=== PATIENT | male | born 1975 | race Caucasian/White ===

== ENCOUNTER → 2020-02-02 08:00 | Outpatient (BNVA) | payer BC, SELFPAY | PROVIDERS: Visit Provider Anesthesiology | DX: G89.29 Other chronic pain (principal); M54.41 Lumbago with sciatica, right side; M54.42 Lumbago with sciatica, left side; M79.651 Pain in right thigh; M79.652 Pain in left thigh; M79.605 Pain in left leg; M54.2 Cervicalgia; R51 Headache; F17.210 Nicotine dependence, cigarettes, uncomplicated; Z71.6 Tobacco abuse counseling | CPT/HCPCS: 99214 ==

== ENCOUNTER → 2020-05-03 08:46 | Outpatient (BNVA) | payer MEDICAID, SELFPAY | PROVIDERS: PCP Registered Nurse; Visit Provider Anesthesiology | DX: G89.29 Other chronic pain (principal); M54.41 Lumbago with sciatica, right side; M54.42 Lumbago with sciatica, left side; M54.6 Pain in thoracic spine; M54.2 Cervicalgia; F17.210 Nicotine dependence, cigarettes, uncomplicated; Z79.891 Long term (current) use of opiate analgesic; Z71.6 Tobacco abuse counseling | CPT/HCPCS: 99214 ==

== ENCOUNTER → 2020-07-06 07:58 | Outpatient (BNVA) | payer OTHER, SELFPAY | PROVIDERS: PCP Registered Nurse; Visit Provider Anesthesiology | DX: G89.29 Other chronic pain (principal); M54.42 Lumbago with sciatica, left side; M54.41 Lumbago with sciatica, right side; M79.605 Pain in left leg; M54.2 Cervicalgia; M54.6 Pain in thoracic spine; F17.210 Nicotine dependence, cigarettes, uncomplicated; Z79.891 Long term (current) use of opiate analgesic; Z71.6 Tobacco abuse counseling | CPT/HCPCS: 99214 ==

== ENCOUNTER → 2020-08-31 08:04 | Outpatient (BNVA) | payer SELFPAY | PROVIDERS: PCP Registered Nurse; Visit Provider Anesthesiology | DX: G89.29 Other chronic pain (principal); M54.42 Lumbago with sciatica, left side; M54.41 Lumbago with sciatica, right side; M54.6 Pain in thoracic spine; M54.2 Cervicalgia; M79.605 Pain in left leg; F17.210 Nicotine dependence, cigarettes, uncomplicated; Z79.891 Long term (current) use of opiate analgesic | CPT/HCPCS: 99214 ==

== ENCOUNTER → 2020-11-01 07:53 | Outpatient (BNVA) | payer OTHER, SELFPAY | PROVIDERS: PCP Registered Nurse; Visit Provider Anesthesiology | DX: G89.29 Other chronic pain (principal); M54.42 Lumbago with sciatica, left side; M54.41 Lumbago with sciatica, right side; M79.605 Pain in left leg; M54.6 Pain in thoracic spine; M54.2 Cervicalgia; F17.210 Nicotine dependence, cigarettes, uncomplicated; Z79.1 Long term (current) use of non-steroidal anti-inflammatories (NSAID); Z79.891 Long term (current) use of opiate analgesic | CPT/HCPCS: 99214 ==

== ENCOUNTER → 2020-12-27 08:46 | Outpatient (BNVA) | payer OTHER, SELFPAY | PROVIDERS: PCP Registered Nurse; Visit Provider Anesthesiology | DX: G89.29 Other chronic pain (principal); M54.42 Lumbago with sciatica, left side; M54.41 Lumbago with sciatica, right side; M54.2 Cervicalgia; M79.605 Pain in left leg; F17.210 Nicotine dependence, cigarettes, uncomplicated; Z79.891 Long term (current) use of opiate analgesic | CPT/HCPCS: 99214 ==

== ENCOUNTER → 2021-02-24 08:19 | Outpatient (BNVA) | payer OTHER, SELFPAY | PROVIDERS: PCP Registered Nurse; Visit Provider Anesthesiology | DX: G89.29 Other chronic pain (principal); M54.42 Lumbago with sciatica, left side; M54.41 Lumbago with sciatica, right side; M54.6 Pain in thoracic spine; M54.2 Cervicalgia; M79.605 Pain in left leg; Z79.891 Long term (current) use of opiate analgesic | CPT/HCPCS: 99214 ==

== ENCOUNTER → 2021-04-20 08:14 | Outpatient (BNVA) | payer OTHER, SELFPAY | PROVIDERS: PCP Registered Nurse; Visit Provider Anesthesiology | DX: G89.29 Other chronic pain (principal); M54.42 Lumbago with sciatica, left side; M54.41 Lumbago with sciatica, right side; M54.2 Cervicalgia; M25.561 Pain in right knee; M79.605 Pain in left leg; F17.210 Nicotine dependence, cigarettes, uncomplicated; Z79.891 Long term (current) use of opiate analgesic | CPT/HCPCS: 99214 ==

== ENCOUNTER → 2021-06-29 09:02 | Outpatient (BNVA) | payer OTHER, SELFPAY | PROVIDERS: PCP Registered Nurse; Visit Provider Nurse Practitioner | DX: G89.29 Other chronic pain (principal); M54.42 Lumbago with sciatica, left side; M54.41 Lumbago with sciatica, right side; M54.2 Cervicalgia; M54.6 Pain in thoracic spine; M25.561 Pain in right knee; M79.605 Pain in left leg; F17.210 Nicotine dependence, cigarettes, uncomplicated; Z79.891 Long term (current) use of opiate analgesic | CPT/HCPCS: 99213 ==

== ENCOUNTER → 2021-08-24 07:51 | Outpatient (BNVA) | payer OTHER, SELFPAY | PROVIDERS: PCP Registered Nurse; Visit Provider Anesthesiology | DX: G89.29 Other chronic pain (principal); M54.2 Cervicalgia; M54.42 Lumbago with sciatica, left side; M54.41 Lumbago with sciatica, right side; M79.605 Pain in left leg; F17.210 Nicotine dependence, cigarettes, uncomplicated; Z79.891 Long term (current) use of opiate analgesic | CPT/HCPCS: 99213 ==

== ENCOUNTER → 2021-10-19 07:59 | Outpatient (BNVA) | payer OTHER, SELFPAY | PROVIDERS: PCP Registered Nurse; Visit Provider Anesthesiology | DX: G89.29 Other chronic pain (principal); M54.2 Cervicalgia; M54.42 Lumbago with sciatica, left side; M54.41 Lumbago with sciatica, right side; M79.605 Pain in left leg; M54.6 Pain in thoracic spine; M25.561 Pain in right knee; F17.200 Nicotine dependence, unspecified, uncomplicated; Z79.891 Long term (current) use of opiate analgesic; Z79.1 Long term (current) use of non-steroidal anti-inflammatories (NSAID) | CPT/HCPCS: 99214 ==

== ENCOUNTER → 2024-09-24 09:03 | Outpatient (BNVA) | payer MEDICAID, SELFPAY | PROVIDERS: PCP Registered Nurse; Referring Provider Nurse Practitioner Family; Visit Provider Surgery | DX: K92.2 Gastrointestinal hemorrhage, unspecified (principal); Z80.0 Family history of malignant neoplasm of digestive organs | CPT/HCPCS: 99204 ==

== ENCOUNTER → 2024-10-21 07:08 | Day surgery (SDC) | payer MEDICARE, MEDICAID, SELFPAY ==
[2024-10-21 07:29] VITALS: BP 160/125; PULSE 98; RESP 20; TEMP 36.2; O2SAT 95; BMI 42.7
--- NOTE | 2024-10-21 07:34 | ANES.PREANE2 ---
Pre-Anesthetic Assessment Height/Weight: Height 1.8 m Operation Date: 10/21/24 08:30 Proposed Procedures p EGD 81894, 53819, G0105, K92.2, Z80.0(Not Applicable) - Brenton Keller DO s Colonoscopy(Not Applicable) - Brenton Keller DO Familial anesthetic complications: NOne Was Beta Silvia taken within 24 hours: N/A Was Clonidine taken within 24 hours: N/A Last intake: > 8hrs Social Tobacco and No alcohol Exam alert, oriented x 3, clear to auscultation bilaterally and regular rate & rhythm Airway Mallampati: Class IV Dentition: false Comments: Comments: large tongue, aguirre neck Pulmonary Chronic Obstructive Pulmonary Disease and Sleep Apnea O2 at night Anesthetic Plan ASA status: 4 Anesthesia: MAC Risk of > 500 ml blood loss (7ml/kg in children): No Medications/Allergies Home Medications Medication Instructions Recorded Confirmed Last Taken Type ibuprofen 800 mg tablet 800 mg PO TID 30 days #90 tabs 12/21/21 10/21/24 Unknown Rx methocarbamol 500 mg tablet 500 mg PO QID 30 days #150 tabs 12/21/21 10/19/24 Unknown Rx oxycodone-acetaminophen 10 mg-325 1 tab PO .6 times a day PRN pain 12/21/21 10/19/24 Unknown Rx mg tablet (Percocet) 30 days #180 tabs oxycodone-acetaminophen 10 mg-325 1 tab PO .6 times a day PRN pain 12/21/21 10/21/24 10/20/24 Rx mg tablet (Percocet) 30 days #180 tabs tramadol 50 mg tablet 50 mg PO QID PRN pain 30 days #120 12/21/21 10/21/24 10/20/24 Rx tabs ondansetron 8 mg disintegrating 8 mg PO Q8H PRN nausea and 09/24/24 10/19/24 Unknown Rx tablet vomiting #7 tabs Allergies Allergy/AdvReac Type Severity Reaction Status Date / Time No Known Allergies Allergy Verified 09/24/24 09:29 [facility], [facility] Anesthesia Medical History (Updated 09/24/24 @ 09:57 by Brenton Keller DO) Family history of colon cancer Smoker unmotivated to quit Chronic pain of right knee Chronic neck pain Chronic bilateral low back pain with bilateral sciatica Acute neck pain Aching headache Back pain, thoracic Low back pain radiating to left leg Opioid contract exists Encounter for long-term use of opiate analgesic Family History Other Diabetes Social History Smoking and tobacco/nicotine status: current every day tobacco/nicotine user (2 packs a day) cigarettes Packs smoked per day: 1.5 Alcohol intake: never Substance/Drug Use: never Data Anesthesia Cardiac Studies: No Data to Display
[2024-10-21] MEDS: sodium chloride 0.9% 1,000 ML 30 ML IV (07:40)
--- NOTE | 2024-10-21 08:18 | W.PM.OPSUD ---
Surgery/Procedure H&P Update DATE OF PROCEDURE: October 21, 2024 DATE H&P PERFORMED: 09/24/24 H&P UPDATE INFORMATION: I have reviewed H&P completed within last 30 days, I have examined patient prior to procedure and No changes to prior documentation PLANNED PROCEDURE: Operation Date: 10/21/24 08:30 Proposed Procedures p EGD 91526, 44303, G0105, K92.2, Z80.0(Not Applicable) - DO [place] Colonoscopy(Not Applicable) - Brenton Keller DO
--- NOTE | 2024-10-21 09:21 | PC.NURSE ---
0815 Cetacaine one spray administered per anesthesia [facility]. Provider and anesthesia agreed to abort procedure as pt would need medical work up before proceeding.
--- NOTE | 2024-10-21 09:28 | PC.NURSE ---
Patient brought to Pre room 1. No procedure done. Patient arousable - lethargic-V/S taken HR 83, RR 18, BP 123/99, 02 sat 93% RA. IV removed. Catheter intact. at bedside to assist patient getting dressed.
== END ==
PROVIDERS: Visit Provider Surgery
DX: Z53.8 Procedure and treatment not carried out for other reasons (principal)
CPT/HCPCS: J7030

== ENCOUNTER → 2024-11-09 14:51 | Outpatient (BNVA) | payer MEDICARE, MEDICAID, SELFPAY | PROVIDERS: Visit Provider Surgery | DX: K92.2 Gastrointestinal hemorrhage, unspecified (principal); Z80.0 Family history of malignant neoplasm of digestive organs | CPT/HCPCS: 99212 ==